=== PATIENT | female | born 2000 | race Caucasian/White ===

== ENCOUNTER 2022-03-19 00:55 | Inpatient (IN) | payer BC ==
[2022-03-19] MEDS ORDERED: Sodium Chloride 0.9% 20 ML SDV IV PRN (02:22)
[2022-03-19] MEDS ORDERED: Sodium Chloride 0.9% 10 ML Syringe FLUSH PRN (02:22)
[2022-03-19] MEDS ORDERED: Sodium Chloride 0.9% 2.5 ML Syringe FLUSH PRN (02:22)
[2022-03-19] MEDS ORDERED: Citric Acid/Sodium Citrate Solution 30 ML Cup PO ONE (02:22)
[2022-03-19] MEDS ORDERED: ceFAZolin 2 GM in Premix Bag 1 BAG IV ONE (02:22)
[2022-03-19] MEDS ORDERED: Lactated Ringers 1,000 ML IV SCH ×2 (02:30→03:00)
[2022-03-19] MEDS ORDERED: Oxytocin/0.9 % Sodium Chloride 30 UNIT/500 ML BAG IV SCH (02:30)
[2022-03-19] MEDS ORDERED: Morphine PF 10 MG/10 ML SDV ONE (02:46)
[2022-03-19] MEDS ORDERED: fentaNYL 100 MCG/2 ML SDV ONE (02:46)
[2022-03-19] MEDS ORDERED: Ketorolac 30 MG/ML SDV ONE (02:52)
[2022-03-19] MEDS ORDERED: Oxytocin 10 Units/1 ML SDV ONE (02:52)
[2022-03-19] MEDS ORDERED: Dexamethasone 4 MG/ML 5 ML MDV ONE (02:52)
[2022-03-19] MEDS ORDERED: Ondansetron 4 MG/2 ML SDV ONE (02:52)
[2022-03-19] MEDS ORDERED: ceFAZolin 1 GM Vial ONE (02:52)
[2022-03-19] MEDS ORDERED: Oxytocin 10 Units/1 ML SDV IM PRN (02:56)
[2022-03-19] MEDS ORDERED: Tranexamic Acid 1,000 MG in Sodium Chloride 0.9% 100 ML IV PRN (02:56)
[2022-03-19] MEDS ORDERED: Misoprostol 200 MCG Tab RECTAL PRN (02:56)
[2022-03-19] MEDS ORDERED: Ondansetron 4 MG/2 ML SDV IVPUSH PRN ×2 (02:56→04:56)
[2022-03-19] MEDS ORDERED: Methylergonovine 0.2 MG/1 ML Amp IM PRN (02:56)
[2022-03-19] MEDS ORDERED: Acetaminophen/oxyCODONE 325-5 MG Tab PO PRN ×3 (02:56→04:56)
[2022-03-19] MEDS ORDERED: Bisacodyl 10 MG Supp RECTAL PRN (02:56)
[2022-03-19] MEDS ORDERED: diphenhydrAMINE 50 MG/ML SDV IVPUSH PRN ×2 (02:56→04:56)
[2022-03-19] MEDS ORDERED: Lanolin 100% Cream 7 GM Tube TOP PRN (02:56)
[2022-03-19] MEDS ORDERED: Bupivacaine 0.5% 10 ML SDV ONE (04:10)
[2022-03-19] MEDS ORDERED: Ropivacaine 0.5% 5 MG/ML 30 ML SDV ONE (04:10)
[2022-03-19 04:50] LABS: C. TRACHOMATIS BY PCR NOT DETECTED; N. GONORRHOEAE BY PCR NOT DETECTED
[2022-03-19] MEDS ORDERED: fentaNYL 100 MCG/2 ML SDV IVPUSH PRN (04:56)
[2022-03-19] MEDS ORDERED: Phenylephrine HCl In 0.9% NaCl 1 MG/10 ML Vial IVPUSH PRN (04:56)
[2022-03-19] MEDS ORDERED: ePHEDrine 50 MG/ML SDV IVPUSH PRN ×2 (04:56)
[2022-03-19] MEDS ORDERED: Phenylephrine HCl In 0.9% NaCl 1 MG/10 ML Vial IVPUSH SCH (05:00)
[2022-03-19] MEDS ORDERED: Ropivacaine HCl/PF 400 MG in Premix Bag 1 BAG EPIDUR SCH (05:00)
[2022-03-19] MEDS: Ketorolac 30 MG/ML SDV IVPUSH SCH ×5 (10:00→23:43)
[2022-03-19] MEDS ORDERED: [UNRECOGNIZED DRUG - OTHER] PO SCH (16:30)
[2022-03-19] MEDS: Docusate Sodium 100 MG Cap PO SCH (20:38)
[2022-03-19] MEDS ORDERED: ACYCLOVIR 800MG TABLETS PO SCH (21:00)
[2022-03-20] MEDS: Ketorolac 30 MG/ML SDV IVPUSH SCH (05:41)
[2022-03-20] MEDS ORDERED: Phenylephrine 1% 10 MG/ML SDV ONE (07:52)
[2022-03-20] MEDS: Docusate Sodium 100 MG Cap PO SCH (08:55)
[2022-03-20] MEDS ORDERED: Ibuprofen 800 MG Tab PO PRN (09:00)
[2022-03-20 12:19] VITALS: BP 118/52; PULSE 77
== END 2022-03-20 19:06 | disposition home or self-care (01) | DRG 540 ==
LOC: MW.OBCHECK 00:55 → MW.OB 00:58 → MW.OBCHECK 01:25 → MW.OB 01:26 → OBSVTOIN 03:45 → MW.OB 12:38
PROVIDERS: ADMIT Obstetrics & Gynecology; ATTEND Obstetrics & Gynecology
PROC: 10D00Z1 Extraction of Products of Conception, Low, Open Approach (ICD-10-PCS; principal; 2022-03-20)
DX: O32.1XX0 Maternal care for breech presentation, not applicable or unspecified (principal); Z37.0 Single live birth; O77.0 Labor and delivery complicated by meconium in amniotic fluid; Z3A.40 40 weeks gestation of pregnancy
CPT/HCPCS: 36415; 36430; 59025; 76805; 76805-26; 80305-QW; 85014; 85018; 85025; 85460; 86592; 86706; 86762; 86803; 86850; 86900; 86901; 87340; 87389; 87491; 87591; A9270-GY; J0690; J1100; J1885; J2274; J2370; J2405; J2590; J2790; J2795; J3010; J3490; J7120

== ENCOUNTER 2024-07-02 07:58 | Inpatient (IN) | payer BC ==
[2024-07-02] MEDS ORDERED: Lanolin 100% Cream 7 GM Tube TOP PRN (08:11)
[2024-07-02] MEDS ORDERED: Ibuprofen 800 MG Tab PO PRN (08:11)
[2024-07-02] MEDS ORDERED: oxyCODONE 5 MG Tab PO PRN (08:11)
[2024-07-02] MEDS ORDERED: Acetaminophen 500 MG Tab PO PRN (08:11)
[2024-07-02] MEDS ORDERED: Docusate Sodium 100 MG Cap PO PRN (08:11)
[2024-07-02] MEDS: Lactated Ringers 1,000 ML IV SCH (08:27)
[2024-07-02] MEDS: Acetaminophen 1,000 MG in Premix Bag 1 BAG IV ONE (08:27)
[2024-07-02] MEDS: fentaNYL 50 MCG/ML SDV IVPUSH ONE (08:36)
[2024-07-02] MEDS: Oxytocin/0.9 % Sodium Chloride 30 UNIT/500 ML BAG IV SCH (08:45)
[2024-07-02 08:47] LABS: HEMATOCRIT 36.2 % (37.0-47.0); HEMOGLOBIN 13.2 g/dL (12.0-16.0); MEAN CORPUSCULAR HEMOGLOBIN 28.8 pg (28.0-32.0); MEAN CORPUSCULAR HGB CONC 36.5 g/dL (32.0-36.0); MEAN PLATELET VOLUME 10.8 fL (9.4-12.3); PLATELET COUNT,PLT 299 K/uL (150-400); RED BLOOD CELL COUNT 4.58 M/uL (4.10-5.30); WHITE BLOOD CELL COUNT,WBC 26.72 K/uL (3.9-11.3)
[2024-07-02] MEDS: ceFAZolin 2 GM in Sodium Chloride 0.9% 50 ML IV ONE (08:49)
[2024-07-02 09:12] LABS: A/G RATIO 0.7 (0.9-1.6); ALANINE AMINOTRANSFERASE,ALT 26 IU/L (14-63); ALBUMIN 2.7 g/dL (3.4-5.0); ALKALINE PHOSPHATASE 121 U/L (46-116); ASPARTATE AMNIOTRANSFERASE,AST 64 IU/L (15-37); BILIRUBIN TOTAL 0.8 mg/dL (0.2-1.0); BLOOD UREA NITROGEN,BUN 12 mg/dL (7.0-18.0); CALCIUM 9.5 mg/dL (8.5-10.1); CARBON DIOXIDE,CO2 19.5 mmol/L (21.0-32.0); CHLORIDE,CL 91 mmol/L (98-107); CREATININE 0.8 mg/dL (0.6-1.0); GLUCOSE RANDOM 110 mg/dL (74-106); POTASSIUM,K 4.4 mmol/L (3.5-5.1); PROTEIN TOTAL,TP 6.8 g/dL (6.4-8.2); SODIUM,NA 124 mmol/L (136-145)
[2024-07-02 09:13] LABS: ESTIMATED GFR 105 mL/min (>60)
[2024-07-02] MEDS ORDERED: Lidocaine 1% 50 ML MDV ONE (09:13)
[2024-07-02] MEDS ORDERED: Lidocaine 1% 50 ML MDV INJECT ONE (09:41)
[2024-07-02] MEDS: Witch Hazel Medicated Pads 40/Jar TOP PRN (10:09)
[2024-07-02] MEDS: Benzocaine/Menthol 20%-0.5% Spray 78 GM Cannister TOP PRN (10:09)
== END 2024-07-02 16:00 | disposition home or self-care (01) | DRG 542 ==
LOC: MW.OB 07:58
PROVIDERS: ADMIT Obstetrics & Gynecology; ATTEND Obstetrics & Gynecology
PROC: 10E0XZZ Delivery of Products of Conception, External Approach (ICD-10-PCS; principal; 2024-07-02)
PROC: 30233S1 Transfusion of Nonautologous Globulin into Peripheral Vein, Percutaneous Approach (ICD-10-PCS; 2024-07-02)
PROC: 0DQR0ZZ Repair Anal Sphincter, Open Approach (ICD-10-PCS; 2024-07-02)
DX: O73.0 Retained placenta without hemorrhage (principal); O34.211 Maternal care for low transverse scar from previous cesarean delivery; O36.60X0 Maternal care for excessive fetal growth, unspecified trimester, not applicable or unspecified; O70.20 Third degree perineal laceration during delivery, unspecified; Z3A.41 41 weeks gestation of pregnancy; O48.0 Post-term pregnancy; Z37.0 Single live birth
CPT/HCPCS: 36415; 59414; 80053; 85027; 85460; 86850; 86900; 86901; A9270-GY; J0131; J0690; J2003; J2590; J2791; J3010; J7120